=== PATIENT | female | born 1960 | race Caucasian/White ===

== ENCOUNTER → 2018-02-03 | Day surgery (SDC) | payer OTHER ==
[2018-02-01 14:34] VITALS: Ht 161.3 cm; Wt 57.3 kg
[~2018-02-03] VITALS: Ht 161.3 cm; Wt 57.3 kg
[~2018-02-03] MED LIST: ESTROGEN PO; FENTANYL CITRATE INJ 50 MCG/1 ML 2 ML VIAL ONE; HEART MED PO; LIDOCAINE HCL 2% 2 ML VIAL (20MG/ML) ONE; METO25TA3 PO; MIDAZOLAM HCL 1 MG/ML 2ML VIAL ONE; PROGESTERONE PO; PROPOFOL IV EMULSION 10 MG/ML 20 ML VIAL ONE; ROSU5TAB PO; SODIUM CHLORIDE 0.9% 500ML 500 ML IV ONE; STATIN PO; TESTOSTERONE TOP
[2018-02-03 09:53] VITALS: TEMP 36.7
--- NOTE | 2018-02-03 10:09 | Endo History and Physical ---
History & Physical Date of Service: Feb 03, 2018. Chief Complaint: screening Referring Physician: Dr. Gomes History of Present Illness 57 yo CF who presents for screening colonoscopy. Past Surgical History Hx Cardiac Surgery: No Hx Internal Defibrillator: No Hx Pacemaker: No Hx Abdominal Surgery: Yes (C SECTION X 4,HERNIA X 2,HYSTERECTOMY BSO,BOWEL RESECTION) Hx of Implantable Prosthesis: No Hx Post-Op Nausea and Vomiting: No Hx Cancer Surgery: No Hx Thoracic Surgery: No Hx Orthopedic: No Hx Urinary Tract Surgery: No Social History Smoking Status: Never Smoker Hx Substance Use: No Hx Alcohol Use: No Allergies Coded Allergies: Morphine (Verified Allergy, Unknown, NAUSEA, 02/03/18) Current Medications Reported Home Medications Medications Dose Route/Sig Max Daily Dose Days Date Category Crestor (Rosuvastatin Calcium) 5 Mg Tab 1 Tab PO DAILY 30 02/03/18 Reported Toprol-Xl (Metoprolol Succinate) 25 Mg Tabcr 25 Mg PO DAILY 02/03/18 Reported [Testosterone Cr] 1 Dose TOP DAILY 02/01/18 Reported [Progesterone] 1 Tab PO HS 02/01/18 Reported [Estrogen] 1 Tab PO TID 02/01/18 Reported Vital Signs Weight (Kilograms): 57.27 Height (Feet): 5 Height (Inches): 3.5 Date Time Temp Pulse Resp B/P (MAP) Pulse Ox O2 Delivery O2 Flow Rate FiO2 02/03/18 09:53 36.7 77 20 121/79 (93) 96 Room Air Physical Exam General Appearance: WD/WN, no apparent distress Respiratory/Chest: Auscultation: breath sounds normal Cardiovascular: Heart Auscultation: RRR Abdomen: Bowel Sounds: normal Inspection & Palpation: soft, non-distended, no tenderness, guarding & rebound Assessment and Plan Assessment: 57 yo CF who presents for screening colonoscopy. Plan: Proceed with colonoscopy.
--- NOTE | 2018-02-03 10:52 | Discharge Instructions ---
Endoscopy Patient Instructions Date / Procedure(s) Performed Feb 03, 2018. Colonoscopy Allergy Information Coded Allergies: Morphine (Verified Allergy, Unknown, NAUSEA, 02/03/18) Discharge Date / Findings Feb 03, 2018. Colon polyps Internal hemorrhoids Medication Instructions OK to resume all medications today as prescribed Reported Home Medications Medications Dose Route/Sig Max Daily Dose Days Date Category Crestor (Rosuvastatin Calcium) 5 Mg Tab 1 Tab PO DAILY 30 02/03/18 Reported Toprol-Xl (Metoprolol Succinate) 25 Mg Tabcr 25 Mg PO DAILY 02/03/18 Reported [Testosterone Cr] 1 Dose TOP DAILY 02/01/18 Reported [Progesterone] 1 Tab PO HS 02/01/18 Reported [Estrogen] 1 Tab PO TID 02/01/18 Reported Provider Instructions Activity Restrictions - No exercising or heavy lifting for 24 hours. - Do not drink alcohol the day of the procedure. - Do not drive a car or operate machinery until the day after the procedure. - Do not make any important decisions or sign important papers in 24 hours after the procedure. Following Day: - Return to full activity which may include returning to work/school. Diet Start your diet with liquids and light foods (jello, soup, juice, toast). Then eat your usual diet if not nauseated. Treatment For Common After Affects For mild abdominal pain, bloating, or excessive gas: - Rest - Eat lightly - Lie on right side Follow-Up Information Follow-up with Dr. Gomes as scheduled Anesthesia Information What You Should Know You have had a procedure that required some medicine to reduce anxiety and discomfort. This treatment is called moderate sedation. After receiving the treatment, you may be sleepy, but you will be able to breathe on your own. The effects of the treatment may last for several hours. Follow these instructions along with Activity/Diet recommendations noted above: * Do NOT do anything where dizziness or clumsiness would be dangerous. * Rest quietly at home today, then you can be up and about tomorrow. * Have a responsible person stay with you the rest of today. * You may have had an I.V. today. If so, you may take the dressing off later today. Recommendations Call your doctor if: * Trouble breathing * Continuous vomiting for more than 24 hours * Temperature above 101 degrees * Severe abdominal pain or bloating * Pain not relieved by pain medicine ordered * There is increased drainage or redness from any incision * A large amount of rectal bleeding greater than 2-3 tablespoons. (If you had a polyp/s removed or have hemorrhoids, a small amount of blood - from the rectum is to be expected.) * You have any unanswered questions or concerns. IN THE EVENT OF A SERIOUS EMERGENCY, GO TO THE NEAREST EMERGENCY ROOM Your discharge instructions were prepared by provider Harinder Urena. Patient Instructions Signature Page Chica Tucker Patient (or Guardian) Signature/Date: I have read and understand the instructions given to me by my caregivers. Caregiver/RN/Doctor Signature/Date: The above-named patient and/or guardian has received patient instructions on this date. + Original Patient Signature Page (only) stays with chart. Please make copy for patient.
--- NOTE | 2018-02-03 10:56 | Anesthesiology Progress Note ---
Anesthesia Post Op Note Date & Time Feb 03, 2018 at 10:56 Vital Signs Pain Intensity: 0 Vital Signs Past 12 Hours Date Time Temp Pulse Resp B/P (MAP) Pulse Ox O2 Delivery O2 Flow Rate FiO2 02/03/18 10:53 66 18 108/60 (76) 96 Room Air 02/03/18 10:44 65 16 106/64 (78) 97 Room Air 02/03/18 09:53 36.7 77 20 121/79 (93) 96 Room Air Notes Mental Status: alert / awake / arousable, participated in evaluation Pt Amnestic to Procedure: Yes Nausea / Vomiting: adequately controlled Pain: adequately controlled Airway Patency, RR, SpO2: stable & adequate BP & HR: stable & adequate Hydration State: stable & adequate Anesthetic Complications: no major complications apparent
[2018-02-03 11:07] VITALS: BP 120/72; PULSE 58; O2SAT 98
--- NOTE | 2018-02-03 11:13 | GI REPORT ---
Patient Name: Chica Tucker Procedure Date: 02/03/2018 10:21 AM Date of : 1960 Admit Type: Outpatient Age: 57 Gender: Female Attending MD: Harinder Urena DO Procedure: Colonoscopy Providers: Harinder Urena DO Referring MD: Terri Gomes Indications: Screening for colorectal malignant neoplasm Medicines: Monitored Anesthesia Care Complications: No immediate complications. Estimated Blood Loss: Estimated blood loss: none. Procedure: Pre-Anesthesia Assessment: - Prior to the procedure, a History and Physical was performed, and patient medications and allergies were reviewed. The patient's tolerance of previous anesthesia was also reviewed. The risks and benefits of the procedure and the sedation options and risks were discussed with the patient. All questions were answered, and informed consent was obtained. Prior Anticoagulants: The patient has taken no previous anticoagulant or antiplatelet agents. ASA Grade Assessment: II - A patient with mild systemic disease. After reviewing the risks and benefits, the patient was deemed in satisfactory condition to undergo the procedure. After I obtained informed consent, the scope was passed under direct vision. Throughout the procedure, the patient's blood pressure, pulse, and oxygen saturations were monitored continuously. The Scope was introduced through the anus and advanced to the terminal ileum. The colonoscopy was performed without difficulty. The patient tolerated the procedure well. The quality of the bowel preparation was good. The terminal ileum, ileocecal valve, appendiceal orifice, and rectum were photographed. Findings: The perianal and digital rectal examinations were normal. There was evidence of a prior end-to-side ileo-colonic anastomosis in the ascending colon. This was patent and was characterized by healthy appearing mucosa. The anastomosis was traversed. Two sessile polyps were found in the sigmoid colon and transverse colon. The polyps were 4 to 5 mm in size. These polyps were removed with a cold snare. Resection and retrieval were complete. Non-bleeding internal hemorrhoids were found during retroflexion. The hemorrhoids were small. Impression: - Patent end-to-side ileo-colonic anastomosis, characterized by healthy appearing mucosa. - Two 4 to 5 mm polyps in the sigmoid colon and in the transverse colon, removed with a cold snare. Resected and retrieved. - Non-bleeding internal hemorrhoids. Recommendation: - Resume previous diet. - Continue present medications. - Repeat colonoscopy for surveillance based on pathology results. - Return to primary care physician as previously scheduled. Harinder HerveAbel Urena, DO 02/03/2018 11:13:33 AM This report has been signed electronically. Note Initiated On: 02/03/2018 10:21 AM Number of Addenda: 0 I attest to the content of the Intraoperative Record and orders documented therein, exceptions below {[id number]}
== END | disposition home or self-care (01) ==
LOC: C.GI 09:10
PROVIDERS: ATTEND Internal Medicine
DX: Z12.11 Encounter for screening for malignant neoplasm of colon (principal); D12.3 Benign neoplasm of transverse colon; K64.8 Other hemorrhoids; Z88.5 Allergy status to narcotic agent

== ENCOUNTER 2020-02-25 05:09 | Observation (INO) ==
[2020-02-25] MEDS ORDERED: ONDANSETRON INJ 2 MG/ML 2 ML VIAL IV PRN (16:05)
[2020-02-25] MEDS ORDERED: ALUMINUM/MAGNESIUM SUSP 30 ML UDC PO PRN (16:05)
--- NOTE | 2020-02-25 16:12 | History & Physical Report ---
Date of Service February 25, 2020 Assessment & Plan (1) Pyelonephritis: Continue ceftriaxone as started at [facility] awaiting cultures from their facility hydration with intravenous fluids pain control with Tylenol plus oral opiates and follow renal function (2) Hypertension: Patient is only on 12.5 of metoprolol daily With regard to previous history of dyslipidemia she is amended her diet significantly and only takes her statin 3 times a week (3) DVT prophylaxis: Lovenox will be DVT prevention Patient is a full code Admission and Anticipated Discharge Date Admission Date: February 25, 2020 History of Present Illness Primary Care Provider: Uma Gomes 59-year-old female transferred from [facility] with concern for pyelonephritis and multifocal small renal infarctions. Patient states that in her youth she had multiple urinary tract infections and did know to have some damage to her left kidney however she is not had any urine infections for some time. Patient is had 5-day history of some back pain and increased urinary frequency. She saw an urgent care center which to the urine dip told her that it was not infected and prescribed [id number] AZO. Her back pain persisted to the point where she returned to [facility] they performed a urine analysis which was positive for blood nitrates leukocyte esterase and white cells CT scan was performed which had the suggestion for pyelonephritis. However the patient has no kidney or renal distress by her serologies her back pain is improved with mild pain medication but she was transferred here in the outside chance she might need urology or renal expertise. Allergies Allergy/AdvReac Type Severity Reaction Status Date / Time latex Allergy Mild BLISTERS Verified 05/24/19 09:51 morphine AdvReac Unknown NAUSEA Verified 05/24/19 09:51 Home Medications Home Medications Medication Instructions Recorded Confirmed Type ipratropium bromide 0.03 % nasal 2 sprays INTNAS PRN 04/20/19 05/24/19 History spray metoprolol succinate 25 mg 25 mg PO QAM 04/20/19 02/25/20 History tablet,extended release 24 hr rosuvastatin 10 mg tablet 10 mg PO .Every other day tab 04/20/19 02/25/20 History Past Med/Surg History Medical History (Updated 02/25/20 @ 16:45 by Garrett Castro MD) Hyperlipidemia Hypertension Surgical History (Updated 05/20/19 @ 08:16 by Montse Pollick, RN) H/O tubal ligation H/O: hysterectomy Abdominal hysterectomy and repair of abdominal wall History of bowel resection bowel obstruction History of delivery x 4 Hx of colonoscopy Hx of esophagogastroduodenoscopy Family History Mother Diabetes Hypertension Heart disease Father Hypertension Social History (Updated 04/20/19 @ 11:30 by Ernestine Zafar RN) Smoking Status: Never smoker Second Hand Exposure: No; Hx Alcohol Use: Yes Alcohol type: wine Hx Substance Use: No Preferred Language: Australian Communication Ability: Effective Trouble Operator Required: No Beliefs That Will Affect Care: None marital status: Current Living Situation: Spouse current occupational status: employed current occupation: Consultant R[employer] Other Information That Helps Us Care for You: No Feels Safe at Home: Yes Safety Concerns: Feels Safe At This Time Review of Systems Review of Systems: Mild distress and fatigue no headache, blurry or double vision no speech or swallowing issues no chest pain, pressure or palpitations no shortness of breath, cough or wheezes no abdominal pain, very minor left-sided CVA tenderness, no nausea or vomiting, diarrhea or constipation no dysuria, hematuria or frequency no focal joint pain or swelling no back pain, does have left-sided CVA tenderness but no radicular pain no bruising, bleeding or rashes no focal signs of weakness or numbness or altered sensation no complaints or anxiety or depression. Physical Exam Physical Exam: The patient appeared well nourished and normally developed. Vital signs as documented. Head exam is normocephalic atraumatic no scleral icterus Neck is without JVD, thyromegaly, or carotid bruits. Lungs are clear to auscultation, no focal loss of breath sounds Cardiac exam, Rhythm is regular.. No murmurs, rubs or gallops. Abdominal exam reveals normal bowel sounds, soft very minor reproducible left- sided CVA angle tenderness Extremities are nonedematous and both pedal pulses are normal. Neurologic exam is alert and oriented, no focal loss of strength or sensation Skin is without bruises or rashes Psychologically is without concerns for anxiety or depression. Code Status & VTE Plan VTE Prophylaxis Plan VTE Prophylaxis will be ordered: Yes PG Care Time/CCT Total # of Minutes Spent Total Time Spent with Patient: Total time spent is greater than 50% in coordination of care (as documented) at patient's floor/unit and/or counseling patient: Coding Level of Care Code 53479 Initial Inpt Care Lvl 2 Diagnoses Pyelonephritis N12 Hypertension I10 DVT prophylaxis Z29.9
[2020-02-25] MEDS: SODIUM CHLORIDE 0.9% 1000ML 1,000 ML IV SCH (16:15)
[2020-02-25] MEDS ORDERED: IPRATROPIUM BROMIDE NASAL SPRAY 0.06% 15ML NAE PRN (16:34)
[2020-02-25] MEDS ORDERED: MELATONIN 3 MG TAB PO PRN (16:34)
[2020-02-25] MEDS: ACETAMINOPHEN 325 MG TAB PO PRN (19:29)
[2020-02-25] MEDS: OXYCODONE HCL IR 5 MG TAB (IMMEDIATE RELEASE) PO PRN (20:52)
[2020-02-25] MEDS ORDERED: IPRATROPIUM BROMIDE NASAL SPRAY 0.06% 15ML NAE SCH (21:00)
[2020-02-26] MEDS: SODIUM CHLORIDE 0.9% 1000ML 1,000 ML IV SCH (00:19)
[2020-02-26] MEDS ORDERED: PHENAZOPYRIDINE HCL 100 MG TAB PO PRN (05:32)
[2020-02-26 06:40] LABS: BUN Creatinine Ratio 18.2 (10-20); Calcium 8.1 mg/dl (8.5-10.1); Creatinine Clr Calc Pharmacy 63.8 ml/min; Est GFR (African American) 90.1; Est GFR (Non-African American) 77.7; Potassium 4.1 mmol/L (3.5-5.1)
[2020-02-26] MEDS: cefTRIAXone SODIUM 2,000 MG in DEXTROSE 5% 50 ML IV SCH (08:58)
[2020-02-26] MEDS: METOPROLOL SUCC 25MG EXT REL TAB PO SCH ×2 (08:59→09:05)
[2020-02-26] MEDS ORDERED: ROSUVASTATIN CALCIUM 10 MG TAB PO SCH (09:00)
[2020-02-26] MEDS ORDERED: METOPROLOL SUCC 25MG EXT REL TAB PO SCH (09:00)
[2020-02-26 09:13] LABS: Basophils # (auto) 0.01 K/uL (0-0.2); Basophils % (auto) 0.2 %; Eosinophils # (auto) 0.21 K/uL (0-0.5); Eosinophils % (auto) 4.9 %; Hematocrit (blood only) 42.6 % (37-47); Hemoglobin 13.7 g/dL (12.0-16.0); Lymphocytes # (auto) 1.12 K/uL (1.2-3.4); Mean Corpuscular Hemoglobin 30.9 pg (25-34); Mean Corpuscular Hgb Conc 32.2 g/dL (32-36); Mean Corpuscular Volume 96.2 fL (80-100); Mean Platelet Volume 9.9 fL (7.4-10.4); Monocytes # (auto) 0.34 K/uL (0.11-0.59); Monocytes % (auto) 7.9 %; Neutrophils # (auto) 2.63 K/uL (1.4-6.5); Platelet Count 172 K/uL (130-400); RDW Coefficient of Variation 12.2 % (11.5-14.5); RDW Standard Deviation 43.1 fL (36.4-46.3); Red Blood Count 4.43 M/uL (4.2-5.4); White Blood Count 4.31 K/uL (4.8-10.8)
[2020-02-26] MEDS: ENOXAPARIN INJ 40 MG/0.4 ML SYR SQ SCH (10:08)
[2020-02-26] MEDS: OXYCODONE HCL IR 5 MG TAB (IMMEDIATE RELEASE) PO PRN ×2 (12:04→19:44)
--- NOTE | 2020-02-26 15:45 | Hospitalist Progress Note ---
Date of Service February 26, 2020 Assessment & Plan (1) Pyelonephritis: Afebrile, no leukocytosis, vss, dysuria improving Urine culture from [place] growing gram negative rods. Continue ceftriaxone CT from [place] with multifocal perfusion defects on the left kidney indicating pyelonephritis vs infarcts. No obstructing stones. Patient does not have concerning indicators for infarcts - no history of atherosclerotic disease and her CT does not comment on any disease in her vasculature, LDH was normal, no signs of microthrombosis. No history of atrial fibrillation but will check an EKG Kidney function is stable - no need for nephrology consultation at this time as patient is improving clinically (2) Hypertension: Patient is only on 12.5 of metoprolol daily With regard to previous history of dyslipidemia she is amended her diet signif icantly and only takes her statin 3 times a week (3) Back pain: With radiation down back of left leg. It is also somewhat lower on her back than one might expect if due to kidney pain. Will obtain Lumbar spine XR and order a lidoderm patch (4) DVT prophylaxis: Lovenox Patient is a full code Admission and Anticipated Discharge Date Admission Date: February 25, 2020 Supervising Physician Co-Signing Physician Notes Attending Attestation: Chart reviewed in detail, care plan d/w CARLY Warner. I agree w/ the silveira components of her documentation. Cont IV antibiotics for UTI/left-sided pyelonephritis. We discussed her imaging obtained at [facility] -- clinical picture more c/w infectious process rather than infarcts. Agree w/ l-spine x-rays. Eddie Reece MD Subjective Ms. Tucker continues to have left lower back pain that radiates down the back of her left leg. It does not worsen with ambulation. She is having some bladder spasms but her dysuria is improving. ROS Constitutional: no chills, aches, sweats or fever Respiratory: no sob,cough, sputum, or wheezing Cardiac: no chest pain, palpitations, edema, orthopnea or lightheadedness GI: no abdominal pain, nausea, vomiting, diarrhea or constipation : no dysuria or hesitancy Extremities: no joint pain or weakness Skin: no rash All other systems reviewed and negative Physical Exam Physical Exam: General: no distress Eyes: normal inspection, PERLL Respiratory: chest non tender, clear to auscultation, normal breath sounds, no respiratory distress, no accessory muscle use Cardiac: regular rate and rhythm, no rub or gallop, no murmur, no edema, no jvd GI/: active bowel sounds, no abd pain or tenderness, soft, non distended Extremities: normal range of motion, normal strength, non tender, negative straight leg test Neuro/Psych: alert and oriented x 3, normal mood and affect Skin: normal color, dry Results & Data Results & Data ([facility]) Vital Signs (Past 12 Hours) Vital Signs Temp Pulse Resp BP Pulse Ox 02/26/20 14:42 36.8 C 65 20 112/67 94 02/26/20 09:00 65 106/67 02/26/20 07:00 36.6 C 51 L 18 93/60 L 97 02/26/20 04:00 36.4 C L 50 L 16 105/66 96 PG Care Time/CCT Total # of Minutes Spent Total Time Spent with Patient: Total time spent is greater than 50% in coordination of care (as documented) at patient's floor/unit and/or counseling patient: Coding Level of Care Code 60526 Subseq Hosp Care Lvl 2 Diagnoses Pyelonephritis N12 Hypertension I10 Back pain M54.9 DVT prophylaxis Z29.9
--- NOTE | 2020-02-26 15:54 | XRay Report ---
XR lumbar spine 2-3V CLINICAL HISTORY: back pain COMPARISON STUDY: No previous studies for comparison. FINDINGS: There is a lumbar levoscoliosis. There are mild degenerative changes. No fractures or sublu xations are visualized. No destructive lesions are evident. There is left-sided nephrolithiasis. Left renal shadow appears small suggesting underlying renal atrophy. IMPRESSION: 1. Mild spinal curvature convex to the left 2. Mild degenerative change 3. No acute fractures 4. Left-sided nephrolithiasis 5. Suspected left renal atrophy ACT 112: Negative or not required by law. Electronically signed by: Trace Peterson M.D. 02/26/2020 3:52 PM
[2020-02-26] MEDS: LIDOCAINE 5% 1 PATCH TD SCH (16:40)
[2020-02-27] MEDS: ACETAMINOPHEN 325 MG TAB PO PRN (01:38)
[2020-02-27 05:45] LABS: Hematocrit (blood only) 40.5 % (37-47); Hemoglobin 13.5 g/dL (12.0-16.0); Mean Corpuscular Hemoglobin 31.2 pg (25-34); Mean Corpuscular Hgb Conc 33.3 g/dL (32-36); Mean Corpuscular Volume 93.5 fL (80-100); Mean Platelet Volume 10.3 fL (7.4-10.4); Platelet Count 149 K/uL (130-400); RDW Coefficient of Variation 12.1 % (11.5-14.5); RDW Standard Deviation 41.1 fL (36.4-46.3); Red Blood Count 4.33 M/uL (4.2-5.4); White Blood Count 3.85 K/uL (4.8-10.8)
[2020-02-27 06:03] LABS: BUN Creatinine Ratio 19.5 (10-20); Calcium 8.9 mg/dl (8.5-10.1); Creatinine Clr Calc Pharmacy 60.2 ml/min; Est GFR (African American) 83.9; Est GFR (Non-African American) 72.4; Potassium 4.7 mmol/L (3.5-5.1)
[2020-02-27] MEDS ORDERED: ROSUVASTATIN CALCIUM 10 MG TAB PO SCH (09:00)
[2020-02-27] MEDS: LIDOCAINE 5% 1 PATCH TD SCH (09:52)
[2020-02-27] MEDS: cefTRIAXone SODIUM 2,000 MG in DEXTROSE 5% 50 ML IV SCH (09:52)
[2020-02-27] MEDS: ENOXAPARIN INJ 40 MG/0.4 ML SYR SQ SCH (09:53)
[2020-02-27] MEDS: METOPROLOL SUCC 25MG EXT REL TAB PO SCH (09:58)
--- NOTE | 2020-02-27 14:11 | Discharge Summary ---
Date of Service February 27, 2020 Admission HPI Per Admitting Provider 59-year-old female transferred from [facility] with concern for pyelonephritis and multifocal small renal infarctions. Patient states that in her youth she had multiple urinary tract infections and did know to have some damage to her left kidney however she is not had any urine infections for some time. Patient is had 5-day history of some back pain and increased urinary frequency. She saw an urgent care center which to the urine dip told her that it was not infected and prescribed [id number] AZO. Her back pain persisted to the point where she returned to [facility] they performed a urine analysis which was positive for blood nitrates leukocyte esterase and white cells CT scan was performed which had the suggestion for pyelonephritis. However the patient has no kidney or renal distress by her serologies her back pain is improved with mild pain medication but she was transferred here in the outside chance she might need urology or renal expertise. Principal Diagnosis pyelonephritis Discharge Exam Constitutional WD/WN, vitals as above Respiratory normal respiratory effort, lungs clear to auscultation Cardiovascular RRR, no murmur, no edema Gastrointestinal (Abdomen) normal bowel sounds, soft, nontender, no hepatosplenomegaly Musculoskeletal no cyanosis or clubbing, extremities motor strength 5/5 Skin no rashes, warm and dry Neurologic moves all extremities and awake Psychiatric A+Ox3, euthymic affect Discharge Data Allergies Allergy/AdvReac Type Severity Reaction Status Date / Time latex Allergy Mild BLISTERS Verified 05/24/19 09:51 morphine AdvReac Unknown NAUSEA Verified 05/24/19 09:51 Hospital Course (1) Pyelonephritis: Afebrile, no leukocytosis, vss, dysuria improving Urine culture from [place] growing klebsiella. Given ceftriaxone x 2 days inpatient - transition to cipro per sensitivities and continue for five more days for a total of [address] from [place] with multifocal perfusion defects on the left kidney indicating pyelonephritis vs infarcts. No obstructing stones. Patient does not have concerning indicators for infarcts - no history of atherosclerotic disease and her CT does not comment on any disease in her vasculature, LDH was normal, no signs of microthrombosis. No history of atrial fibrillation and EKG showed NSR. Kidney function is stable - no need for nephrology consultation at this time as patient is improving clinically (2) Hypertension: Patient is only on 12.5 of metoprolol daily With regard to previous history of dyslipidemia she is amended her diet significantly and only takes her statin 3 times a week (3) Back pain: With radiation down back of left leg. Lumbar Xray showed levoscoliosis and degenerative disc. Pain was relieved over the night with a lidoderm patch. Patient reports her pain has resolved today. She could consider starting some physical therapy if she should have return of her pain or radiculopathy (4) Leukopenia: WBCs 3.9 today, likely secondary to infection Follow up for repeat blood work in a week with pcp (5) Atrophy of left kidney: On CT patient has left kidney atrophy. Patient reports history of frequent UTIs when she was younger and required dilatation of her left ureter. Patient was aware that she had damage to that kidney. Kidney function wnl. Continue to follow with pcp (6) DVT prophylaxis: Lovenox Patient is a full code Total Time Total Time Spent Total Time Spent (In Minutes): greater than 30 minutes Discharge Plan Discharge Items Patient Disposition: Home - Self-Care Reason For Visit: PYELONETHRITIS Discharge Diagnosis: Pyelonephritis Activity: Resume your previous activity Non-emergency contact: Primary Care Provider Call non-emergency contact if: you have any medication questions, your symptoms worsen and you have a fever Follow-up/Referrals: Uma Gomes [Primary Care Provider] - (follow up in one week ) Diet: Regular Addtl Attending Provider Instructions: (1) Pyelonephritis: Your urine culture grew klebsiella pneumonia. Ceftriaxone covers this which you received for two days here in the hospital. You will transition to oral ciprofloxacin twice per day for a total of 7 days of treatment. You should start this medication tomorrow morning. Your kidney function is stable. Your left kidney was shown to have atrophy on your imaging. Please follow up with your primary care provider for any further monitoring. (2) Back pain: Your lumbar spine imaging showed some mild degenerative disc disease and levoscoliosis. You can continue to use acetaminophen and lidoderm patches for back pain. If you experience a return of back pain or pain radiating down your leg please talk to your doctor about starting physical therapy or seeing orthopedics. (3) Leukopenia Your white blood cell count was on the low side today, likely due to the infection. Please follow up with your provider about repeating your blood work at your next visit Pending Studies at Discharge: No Stand-Alone Forms: My [facility], Smoking Cessation Medications and DC Order Prescriptions: New lidocaine 5 % Adhesive Patch,Medicated 1 patch transdermal QAM Qty: 7 RF: 0 ciprofloxacin HCl 500 mg tablet 500 mg PO BID Qty: 10 RF: 0 Continued metoprolol succinate 25 mg tablet extended release 24 hr 25 mg PO QAM RF: 0 rosuvastatin [Crestor] 10 mg tablet 10 mg PO .Every other day RF: 0 ipratropium bromide 0.03 % spray,non-aerosol 2 sprays INTNAS PRN (Reason: Allergy Symptoms) RF: 0 Discharge Orders: Discharge Order (Routine); Ordered 02/27/20 Ordered By: Sherrell Plaza/Other Patient Handouts: Ciprofloxacin tablets Admission Data Admit Date/Time: 02/25/20 16:06 Attending Provider: Oleg Tucker Admit Provider: Chica Yoon Primary Care Provider: Uma Gomes Other Interventions: Discharge Summary Assessment (RN) Last Done: 02/27/20 14:08 Supervising Physician Co-Signing Physician Notes Patient seen and examined on the day of discharge. I agree with the discharge summary by Sherrell CARROLL. I have reviewed the chart including labs, imaging and plans for discharge. patient feeling great, no further urinary symptoms, no fever, eating and drinking well culture results from outside hospital show Klebsiella, taylor sensitive, will send home on Cipro, she says she has tolerated that in the past - Pyelonephritis: resolved with IV antibiotics and fluids, no fever, WBC s lightly low discharge home on course of Ciprofloxacin follow up with PCP stay well hydrated, well nourished Coding Level of Care Code D/C Day Management >30 mins Diagnoses Pyelonephritis N12 Hypertension I10 Back pain M54.9 Leukopenia D72.819 Atrophy of left kidney N26.1 DVT prophylaxis Z29.9
--- NOTE | 2020-02-28 21:38 | Electrocardiogram Report ---
Test Reason : Blood Pressure : / mmHG Vent. Rate : 064 BPM Atrial Rate : 064 BPM P-R Int : 154 ms QRS Dur : 084 ms QT Int : 406 ms P-R-T Axes : 058 071 032 degrees QTc Int : 418 ms Normal sinus rhythm Normal ECG No previous ECGs available Confirmed by Cesar Jiang ([id number]) on 02/28/2020 9:38:19 PM Referred By: Provider Outside Confirmed By:Cesar Jiang
== END 2020-02-27 15:00 | disposition home or self-care (01) ==
LOC: 2W 15:58 → INTOOBSV 16:06 → SUATTDRO 16:06